=== PATIENT | female | born 1995 | race Caucasian/White ===

== ENCOUNTER 2018-02-08 18:20 | Emergency (ER) | payer OTHER ==
--- NOTE | 2018-02-08 18:23 | PDOC ---
Rapid Medical Evaluation Time Seen by Provider: 02/08/18 18:23 Medical Evaluation: 02/08/18 18:23 22-year-old female with PCOS (no medications) with pelvic pain/cramping since yesterday. Pain is intermittent and severe. No relif from Motrin. LMP 01/15/2018 and very light. V/s unremarkable. Alert, oriented, no distress. Bilat lower quadrant abdominal tenderness, L>R. -Labs including CBC, CMP, UA, urine -Pelvic u/s r/o torsion -To Main ED for further evaluation Discharge Disposition - Diagnosis Pelvic pain - Referrals - Patient Instructions - Post Discharge Activity
[2018-02-08 18:25] VITALS: BP 132/68; PULSE 88; TEMP 98.4; BMI 25.3
[2018-02-08 20:43] LABS: BASO % 0.6 % (0-2.0); HEMATOCRIT 40.4 % (32.4-45.2); HEMOGLOBIN 13.3 GM/dL (10.7-15.3); LYMPH % 37.2 % (8-40); MCH 26.5 pg (25.7-33.7); MCHC 32.9 g/dl (32.0-36.0); MEAN CELL VOLUME 80.7 fl (80-96); MEAN PLT VOLUME 8.5 fl (7.5-11.1); MONO % 10.2 % (3.8-10.2); PLATELET COUNT 247 K/MM3 (134-434); RBC 5.01 M/mm3 (3.60-5.2); RDW 13.2 % (11.6-15.6); WHITE BLOOD COUNT 9.2 K/mm3 (4.0-10.0)
--- NOTE | 2018-02-08 20:44 | PDOC ---
Attending Attestation - HPI HPI: 02/08/18 20:49 The patient is a , 22 year old female with a significant PMH of ovarian cysts in 2013 presenting with lower abdominal pain since 10PM last night. Patient describes the abdominal pain as cramping, sharp, 8/10 in severity that radiates across the lower abdomen. Patient states she is sexually active. Patients last menstrual period was 8/6. The patient denies vaginal bleeding or discharge, fever, chills, nausea, vomit, diarrhea and constipation. Denies dysuria, frequency, urgency and hematuria. Allergies: NKA Social history: No reported alcohol, drug, or cigarette use. <Zeynep,Daisy - Last Filed: 02/08/18 20:52> - Resident Resident Name: Will Amos - ED Attending Attestation I have performed the following: I have examined & evaluated the patient, The case was reviewed & discussed with the resident, I agree w/resident's findings & plan, Exceptions are as noted - Physicial Exam PE: 02/08/18 21:40 Physical Exam General Appearance: Yes: Appropriately Dressed. No: Apparent Distress, Intoxicated HEENT: positive: EOMI, ANTONIA, Normal ENT Inspection, Normal Voice, TMs Normal, Pharynx Normal. negative: Pale Conjunctivae, Photophobia, Scleral Icterus (R), Scleral Icterus (L) Neck: positive: Trachea midline, Normal Thyroid, Supple. negative: Tender, Rigid, Carotid bruit, Stridor, Lymphadenopathy (R), Lymphadenopathy (L), Thyromegaly Respiratory/Chest: positive: Lungs Clear, Normal Breath Sounds. negative: Chest Tender, Respiratory Distress, Accessory Muscle Use, Labored Respiration, RES, Crackles, Rales, Rhonchi, Stridor, Wheezing, Dullness Cardiovascular: positive: Regular Rhythm, Regular Rate, S1, S2. negative: Edema , JVD, Murmur, Bradycardia, Tachycardia Vascular Pulses: Dorsalis-Pedis (R): 2+, Doralis-Pedis (L): 2+ Gastrointestinal/Abdominal: positive: Normal Bowel Sounds, Flat, Soft. mild right lower quadrant tenderness negative: Organomegaly, Pulsatile Mass, Increased Bowel Sounds, Decreased BS, Distended, Guarding, Rebound, Hernia, Hepatomegaly, Spleenomegaly Lymphatic: negative: Adenopathy, Tenderness Musculoskeletal: positive: Normal Inspection. negative: CVA Tenderness, Decreased Range of Motion Extremity: positive: Normal Capillary Refill, Normal Inspection, Normal Range of Motion, Pelvis Stable. negative: Tender, Pedal Edema, Swelling, Erythema Integumentary: positive: Normal Color, Dry, Warm. negative: Cyanotic, Erythema , Jaundice, Rash Neurologic: positive: shipping and receiving coordinator II-XII NML intact, Fully Oriented, Alert, Normal Mood/ Affect, Motor Strength 5/5. negative: EOM Palsy, Facial Droop, Sensory Deficit - Medical Decision Making 02/08/18 21:41 Pt was treated and released. <Vito Kraus - Last Filed: 02/08/18 21:41>
[2018-02-08 20:46] LABS: URINE APPEARANCE SLCLOUDY; URINE BILIRUBIN NEGATIVE (<2.0 mg/dL); URINE COLOR YELLOW; URINE GLUCOSE (UA) NEGATIVE (NEGATIVE); URINE KETONE 1+ (NEGATIVE); URINE LEUK ESTERASE TRACE (NEGATIVE); URINE NITRITE NEGATIVE (NEGATIVE); URINE PROTEIN NEGATIVE (NEGATIVE)
[2018-02-08 20:55] LABS: EPI CELLS RARE /HPF (FEW); URINE MUCUS MANY
--- NOTE | 2018-02-08 21:00 | PDOC ---
History of Present Illness - General Chief Complaint: Pain Stated Complaint: CRAMPS Time Seen by Provider: 02/08/18 18:23 - History of Present Illness Initial Comments: 02/08/18 20:53 Pt is a 22 y/o young lady w/ a past medical history of ovarian cysts since 2012. Pt presents to [facility] w/ a chief complain left lower quadrant pain that now radiates to the right lower quadrant. Pain is described as being sharp, 8/ 10 in severity, and constant. Pt has tried over the counter medications which have not provided any relief. Pt endorses that this pain has occurred once in the past after she gave to her daughter. Denies cp, sob, nausea, vomiting , vaginal discharge, dysuria, fever, or chills. PMH- Ovarian Cysts (2012) PSurgHx-None NKDA Meds- Multivitamin SexHx- Sexually active, no protection. Past History - Past Medical History Allergies/Adverse Reactions: Allergies Allergy/AdvReac Type Severity Reaction Status Date / Time No Known Allergies Allergy Verified 02/08/18 18:25 Home Medications: Ambulatory Orders NK [No Known Home Medication] 02/08/18 Asthma: No Cancer: No Cardiac Disorders: No Hx Myocardial Infarction: No CVA: No COPD: No CHF: No DVT: No Dementia: No Diabetes: No Dialysis: No GI Disorders: No Disorders: No HTN: No Hypercholesterolemia: No HIV: No Kidney Stones: No Liver Disease: No Psychiatric Problems: No Seizures: No Thyroid Disease: No Lung CA: No Other medical history: PCOS - Surgical History Abdominal Surgery: No Appendectomy: No Cardiac Surgery: No Cholecystectomy: No - Suicide/Smoking/Psychosocial Hx Smoking History: Never smoked Have you smoked in the past 12 months: No Information on smoking cessation initiated: No Hx Alcohol Use: No Drug/Substance Use Hx: No Substance Use Type: None Review of Systems - Review of Systems Able to Perform ROS?: Yes Is the patient limited Malagasy proficient: No *Physical Exam - Vital Signs Last Vital Signs Temp Pulse Resp BP Pulse Ox 98.4 F 88 18 132/68 100 02/08/18 18:22 02/08/18 18:22 02/08/18 18:22 02/08/18 18:22 02/08/18 18:22 - Physical Exam Comments: 02/08/18 21:06 P.E Gen- NAD, AAOx3 CVS-Tachycardia RS- CTA B/L ABD-- + Obturator Sign, + Straight leg raise, - Rovsing's, -McBurney's Sign. Ext- No CCE MSK- Full ROM throughout. ED Treatment Course - LABORATORY CBC & Chemistry Diagram: 02/08/18 20:28 02/08/18 20:28 - ADDITIONAL ORDERS Additional order review: 02/08/18 20:28 RBC 5.01 MCV 80.7 MCHC 32.9 RDW 13.2 MPV 8.5 Neutrophils % 51.0 Lymphocytes % 37.2 Monocytes % 10.2 Eosinophils % 1.0 Basophils % 0.6 - RADIOLOGY Radiology Studies Ordered: 02/08/18 21:43 Transvaginal U/S--> Right 2 cm ovarian cysts containing intraluminal blood/ debris. 2.9 cm unilocular left ovarian cyst is seen without evidence of internal debris or blood. No Doppler evidence of Ovarian Torsion, sensativity 70%. Small amount of fluid seen within the cul-de-sac. Endometrial thickness unremarkable --0.3 cm in thickness. 02/08/18 22:00 *DC/Admit/Observation/Transfer Diagnosis at time of Disposition: Pelvic pain - Discharge Dispostion Disposition: HOME Condition at time of disposition: Good Decision to Admit order: No - Referrals Referrals: Daniel Bhagat MD [Staff Physician] - ON STAFF,NOT [Primary Care Provider] - Call tomorrow (Referral for Managed Services Consultant follow up. Pt currently doesnt follow an SCHOOL COUNSELOR. ) - Patient Instructions Printed Discharge Instructions: DI for Ovarian Cyst Print Language: PASHTO - Post Discharge Activity
[2018-02-08 21:03] LABS: ALBUMIN 4.3 g/dl (3.4-5.0); ANION GAP 10 MMOL/L (8-16); BILIRUBIN,TOTAL 0.5 mg/dL (0.2-1.0); BLOOD UREA NITROGEN 13 mg/dL (7-18); CALCIUM 9.1 mg/dL (8.5-10.1); CHLORIDE 108 mmol/L (98-107); CO2 25 mmol/L (21-32); CREATININE 0.7 mg/dL (0.55-1.02); GLUCOSE,RANDOM 70 mg/dL (74-106); POTASSIUM 3.7 mmol/L (3.5-5.1); SGOT/AST 9 U/L (15-37); SGPT/ALT 17 U/L (12-78); SODIUM 143 mmol/L (136-145); TOT PROT 7.5 g/dl (6.4-8.2)
[2018-02-08 21:04] LABS: ALK PHOS 51 U/L (45-117)
[2018-02-08 21:15] LABS: HCG,QUALITATIVE URINE Negative
== END 2018-02-08 22:13 | disposition home or self-care (01) ==
LOC: JER 18:20
DX: R10.2 Pelvic and perineal pain (principal); N83.201 Unspecified ovarian cyst, right side; N83.202 Unspecified ovarian cyst, left side
CPT/HCPCS: 36415; 76830-TC; 80053; 81003; 81015; 84703; 85025; 87086; 99281-25

== ENCOUNTER 2019-06-16 15:13 | Emergency (ER) | payer OTHER ==
[2019-06-16 15:20] VITALS: TEMP 98; BMI 24.5
--- NOTE | 2019-06-16 15:21 | PDOC ---
Rapid Medical Evaluation Chief Complaint: Vaginal Bleeding Time Seen by Provider: 06/16/19 15:19 Medical Evaluation: Allergies Allergy/AdvReac Type Severity Reaction Status Date / Time No Known Allergies Allergy Verified 02/08/18 18:25 06/16/19 15:20 I have performed a brief in-person evaluation of this patient. The patient presents with a chief complaint of: LMP 07/11 present with cramping lower intermittent abd pain and vaginal spotting soaking 1 pad x 1 wk. pt report she had a pos home PT test today Pertinent physical exam findings: A&O x 3 in NAD. I have ordered the following: beta hcg, T&S, cbc The patient will proceed to the ED for further evaluation. Discharge Disposition - Diagnosis Threatened - Discharge Dispostion Condition at time of disposition: Stable - Referrals - Patient Instructions - Post Discharge Activity
--- NOTE | 2019-06-16 16:04 | PDOC ---
History of Present Illness - General Chief Complaint: Vaginal Bleeding Stated Complaint: VOMITING/NAUSEA Time Seen by Provider: 06/16/19 15:19 - History of Present Illness Initial Comments: 06/16/19 16:40 23 year old woman A0 with a history of PCOS, irregular periods, currently w/LNMP 05/05/19 who presents with vaginal spotting and suprapubic pain for 2 weeks worsening today that is L sided, cramping and rated 8/10 associated with nausea since this AM. She also has watery discharge 1 week ago. No nausea, vomiting, d/c no fevers, no recent illness. No dysuria, hematuria. No other complaints ROS GENERAL/CONSTITUTIONAL: No fever or chills. No weakness. HEAD, EYES, EARS, NOSE AND THROAT: No sore throat. CARDIOVASCULAR: No chest pain or shortness of breath RESPIRATORY: No cough, wheezing, or hemoptysis. GASTROINTESTINAL: No nausea, vomiting, diarrhea or constipation. GENITOURINARY: No dysuria, frequency, or change in urination. MUSCULOSKELETAL: No joint or muscle swelling or pain. No neck or back pain. SKIN: No rash NEUROLOGIC: No headache, vertigo, loss of consciousness, or change in strength/ sensation. ENDOCRINE: No increased thirst. No abnormal weight change HEMATOLOGIC/LYMPHATIC: No anemia, easy bleeding, or history of blood clots. ALLERGIC/IMMUNOLOGIC: No hives or skin allergy. PE GENERAL: Awake, alert, and fully oriented, in no acute distress HEAD: No signs of trauma, normocephalic, atraumatic EYES: EOMI, sclera anicteric, conjunctiva clear ENT: oropharynx clear without exudates. Moist mucosa NECK: Normal ROM, supple LUNGS: No distress, speaks full sentences, clear to auscultation bilaterally HEART: Regular rate and rhythm, normal S1 and S2, no murmurs, rubs or gallops, peripheral pulses normal and equal bilaterally. ABDOMEN: Soft, nontender. No guarding, no rebound. No masses EXTREMITIES : Normal inspection, Normal range of motion, no edema. No clubbing or cyanosis. NEUROLOGICAL: Cranial nerves II through XII grossly intact. Normal speech, normal gait, no focal sensorimotor deficits SKIN: Warm, Dry, normal turgor, no rashes or lesions noted PELVIC: anteverted cervix, could not visualize on speculum exam, closed os on palpation, copious milky discharge MDM DDX including but not limited to: r/o ectopic vs torsion threatened vs complete ED Course: Will send G/C for vaginal discharge labs, TVUS Leona Coyle, PGY2 Emergency Medicine Past History - Past Medical History Allergies/Adverse Reactions: Allergies Allergy/AdvReac Type Severity Reaction Status Date / Time No Known Allergies Allergy Verified 06/16/19 15:20 Home Medications: Ambulatory Orders NK [No Known Home Medication] 02/08/18 Asthma: No Cancer: No Cardiac Disorders: No CVA: No COPD: No CHF: No DVT: No Dementia: No Diabetes: No Dialysis: No GI Disorders: No Disorders: No HTN: No Hypercholesterolemia: No Kidney Stones: No Liver Disease: No Psychiatric Problems: No Seizures: No Thyroid Disease: No Lung CA: No - Surgical History Abdominal Surgery: No Appendectomy: No Cardiac Surgery: No Cholecystectomy: No - Reproductive History (#): 2 Para: 1 Cervical CA: No Dysfunctional Uterine Bleeding: No Ectopic : No Endometrial CA: No Polycystic Ovaries: No Therapeutic (s) & number: No Tubal Ligation: No - Psycho Social/Smoking Cessation Hx Smoking History: Never smoked Have you smoked in the past 12 months: No Hx Alcohol Use: No Drug/Substance Use Hx: No Substance Use Type: None *Physical Exam - Vital Signs Last Vital Signs Temp Pulse Resp BP Pulse Ox 98 F 77 18 128/65 99 06/16/19 15:17 06/16/19 15:17 06/16/19 15:17 06/16/19 15:17 06/16/19 15:17 ED Treatment Course - LABORATORY CBC & Chemistry Diagram: 06/16/19 15:54 06/16/19 15:54 Discharge - Discharge Information Problems reviewed: Yes Clinical Impression/Diagnosis: Threatened , Vaginal bleeding Condition: Stable Disposition: HOME - Admission No - Follow up/Referral Referrals: Shaista Huitron DO [Staff Physician] - Lisa Mccabe MD [Staff Physician] - - Patient Discharge Instructions Patient Printed Discharge Instructions: DI for Vaginal Bleeding During Additional Instructions: You were seen in the ER for complaints of vaginal spotting in Your labwork and US was unremarkable Your ultrasound showed a single intrauterine at 6 weeks with a heart rate of 115bpm You have a referral to OBGYN and should follow up within 1 week. See your Family Doctor within 1 week as well. Return to the ER if you experience worsening vaginal bleeding, worsening abdominal pain, nausea, vomiting or fever or any other concerning symptoms. - Post Discharge Activity Work/Back to School Note: Back to Work
[2019-06-16 16:12] LABS: BASO % 1.4 % (0-2.0); EOS % 0.7 % (0-4.5); HEMATOCRIT 39.9 % (32.4-45.2); LYMPH % 21.9 % (8-40); MCH 26.4 pg (25.7-33.7); MCHC 32.6 g/dl (32.0-36.0); MEAN CELL VOLUME 80.8 fl (80-96); MEAN PLT VOLUME 8.8 fl (7.5-11.1); MONO % 4.8 % (3.8-10.2); NEUT % 71.2 % (42.8-82.8); PLATELET COUNT 288 K/MM3 (134-434); RBC 4.94 M/mm3 (3.60-5.2); RDW 13.6 % (11.6-15.6); WHITE BLOOD COUNT 10.4 K/mm3 (4.0-10.0)
[2019-06-16 17:34] LABS: ALBUMIN 4.6 g/dl (3.4-5.0); BILIRUBIN,TOTAL 0.5 mg/dL (0.2-1); BLOOD UREA NITROGEN 8.2 mg/dL (7-18); CALCIUM 9.3 mg/dL (8.5-10.1); CREATININE 0.6 mg/dL (0.55-1.3); POTASSIUM 4.1 mmol/L (3.5-5.1); TOT PROT 7.8 g/dl (6.4-8.2)
[2019-06-16 18:19] LABS: PH,URINE 5.5 (5.0-8.0); URINE APPEARANCE CLEAR; URINE BILIRUBIN NEGATIVE (NEGATIVE); URINE COLOR YELLOW; URINE GLUCOSE (UA) NEGATIVE (NEGATIVE); URINE KETONE 2+ (NEGATIVE); URINE LEUK ESTERASE NEGATIVE (NEGATIVE); URINE NITRITE NEGATIVE (NEGATIVE); URINE PROTEIN NEGATIVE (NEGATIVE)
--- NOTE | 2019-06-16 19:30 | PDOC ---
Attending Attestation - Resident Resident Name: Leona Coyle - ED Attending Attestation I have performed the following: I have examined & evaluated the patient, The case was reviewed & discussed with the resident, I agree w/resident's findings & plan, Exceptions are as noted - HPI HPI: 06/16/19 19:27 23 yo currently with positive test here with vaginal spotting. LMP 05/04. no f/c c/o left lower quad pain. also c/o vaginal dc. no h/o ectopic no other complaints. no f/c no urinary complaints. - Physicial Exam PE: 06/16/19 19:29 awake alert lungs clear bilat heart rrr no mrg abd soft mild llq ttp. no rebound no guarding. skin warm and dry. - Medical Decision Making 06/16/19 19:29 23 yo F with c/o vaginal spotting, . r/o ectopic hemorrhagic cyst. us with live IUP 6 wks 0 days. o positive. gc sent and pending. dc home.l referral with probation supervisor.
[2019-06-16 19:40] VITALS: BP 125/79; PULSE 85
== END 2019-06-16 19:38 | disposition home or self-care (01) ==
LOC: JER 15:13
DX: O26.891 Other specified pregnancy related conditions, first trimester (principal); O20.0 Threatened abortion; O99.281 Endocrine, nutritional and metabolic diseases complicating pregnancy, first trimester; E28.2 Polycystic ovarian syndrome; Z3A.01 Less than 8 weeks gestation of pregnancy
CPT/HCPCS: 36415; 76817-TC; 80053; 81003; 84702; 85025; 86850; 86900; 86901; 87491; 87591; 99283-25